=== PATIENT | male | born 1955 | race Caucasian/White ===

== ENCOUNTER → 2017-03-16 | Outpatient (CLI) | payer BC, MEDICAID ==
--- NOTE | 2017-03-16 15:03 | RAD ---
EXAM: Chest 2 views. HISTORY: Dyspnea, cough. COMPARISON: None. FINDINGS: Frontal and lateral views of the chest are obtained. Hyperinflation is consistent with chronic obstructive pulmonary disease. Blunting of the right costophrenic angle is consistent with scarring or small right pleural effusion. There is mild right basilar atelectasis. There is no pneumothorax. The heart is not enlarged. There is a chronic right anterior rib fracture. IMPRESSION: 1. Chronic obstructive pulmonary disease. 2. Small right pleural effusion versus right basilar scarring.
== END | disposition home or self-care (01) ==
LOC: DXRADRC 14:41
PROVIDERS: ATTEND Physician Assistant
DX: J44.9 Chronic obstructive pulmonary disease, unspecified (principal); R06.00 Dyspnea, unspecified
CPT/HCPCS: 71020

== ENCOUNTER → 2017-08-04 | Outpatient (CLI) | payer BC, MEDICAID ==
--- NOTE | 2017-08-04 10:26 | RAD ---
Lumbar spine, 5 views, 08/04/2017: History: Bilateral neuropathy The lumbar vertebral heights are well-maintained. There are moderate scattered spurs in the upper lumbar spine. There is mild disc space narrowing at L2-3 and L1-2. There are mild to moderate degenerative changes involving facet joints bilaterally, particularly in the lower lumbar spine. There is no evidence of spondylolysis. No fracture or dislocation is evident. Moderate aortic calcific plaquing is present. IMPRESSION: 1. Mild to moderate scattered degenerative changes. 2. No acute bony abnormality is detected.
== END | disposition home or self-care (01) ==
LOC: RAD 10:00
PROVIDERS: ATTEND Physician Assistant
DX: G57.90 Unspecified mononeuropathy of unspecified lower limb (principal); M47.896 Other spondylosis, lumbar region; M53.86 Other specified dorsopathies, lumbar region; I70.0 Atherosclerosis of aorta; J44.9 Chronic obstructive pulmonary disease, unspecified
CPT/HCPCS: 72110

== ENCOUNTER → 2017-11-14 | Outpatient (CLI) | payer BC, MEDICAID ==
[2017-11-15 05:13] LABS: HEMOGLOBIN A1C 5.6 % (4.8-5.6)
[2017-11-16 11:10] LABS: ALBUM 3.5 g/dL (2.9-4.4); ALPHA 1 0.3 g/dL (0.0-0.4); BETA 1.1 g/dL (0.7-1.3); PROTEIN TOTAL 6.9 g/dL (6.0-8.5)
== END | disposition home or self-care (01) ==
LOC: LAB 12:48
DX: G62.9 Polyneuropathy, unspecified (principal); R25.1 Tremor, unspecified; R26.89 Other abnormalities of gait and mobility
CPT/HCPCS: 36415; 82607; 82746; 83036; 84165; 84446